=== PATIENT | male | born 1960 | race Caucasian/White ===

== ENCOUNTER → 2018-03-21 | Outpatient (CLI) | payer BC ==
--- NOTE | 2018-03-21 15:57 | PCVCIMAG ---
APPROVED REPORT Study performed: 03/21/2018 14:04:58 EXAM: Comprehensive 2D, Doppler, and color-flow Echocardiogram Patient Location: Echo lab Room #: 2Status: routine BSA: 2.16 HR: 72 bpmBP: 144/80 mmHg Rhythm: NSR Other Information Study Quality: Good Indications Aortic Valve Disease Mitral Valve Disease CAD HX: Rheumatic fever, Cor Ca+ score <100 2D Dimensions IVSd: 15.67 (7-11mm)LVOT Diam: 21.58 (18-24mm) LVDd: 39.30 mm PWd: 13.76 (7-11mm)Ascending Ao: 42.17 (22-36mm) LVDs: 27.14 (25-40mm) Left Atrium: 36.35 (27-40mm) Aortic Root: 28.46 mm LV Single Plane 4CH: 56.34 % LV Single Plane 2CH: 57.49 % Biplane EF: 58.2 % Volumes Left Atrial Volume (Systole) Single Plane 4CH: 36.84 mLSingle Plane 2CH: 46.17 mL Biplane LA Volume: 43.00 mLLA ESV Index: 20.00 mL/m2 Aortic Valve AoV Peak Jero.: 1.64 m/s AO Peak Gr.: 11.21 mmHgLVOT Max P.31 mmHg LVOT Mean P.45 mmHg LVOT Max V: 1.01 m/s LVOT Mean V: 0.75 m/s LVOT V1 VTI: 23.08 cm VLILA Vmax: 2.29 cm2 AI Vmax: 3.16 m/sSV (LVOT): 84.36 mL AI Garden: 1.53 m/s2 AI PHT: 621.92 ms Mitral Valve E/A Ratio: 1.0 MV Decel. Time: 265.79 ms MV E Max Jero.: 1.05 m/s MV A Jero.: 1.07 m/s IVRT: 121.11 ms TDI E/Lateral E': 15.00E/Medial E': 17.50 Medial E' Jero.: 0.06 m/s Lateral E' Jero.: 0.07 m/s Pulmonary Valve PV Peak Jero.: 0.86 m/sPV Peak Gr.: 2.93 mmHg Pulmonary Vein P Vein S: 0.62 m/sP Vein A: 0.35 m/s P Vein D: 0.37 m/sP Vein A Dur.: 96.9 msec P Vein S/D Ratio: 1.68 Tricuspid Valve TR Peak Jero.: 1.98 m/s TR Peak Gr.: 15.65 mmHg TV Vmax: 0.72 m/sPA Pressure: 23.00 mmHg Left Ventricle The left ventricle is normal size. There is normal LV segmental wall motion. There is normal left ventricular wall thickness. Left ventricular systolic function is normal. The left ventricular ejection fraction is within the normal range. LVEF is 55-60%. Left ventricular filling pattern is normal for age. Findings suggest the left atrial pressure is elevated. Right Ventricle The right ventricle is normal size. The right ventricular systolic function is normal. Atria The left atrium size is normal. The right atrium size is normal. Aortic Valve Aortic valve is trileaflet, mildly calcified Mild aortic regurgitation is present. There is no aortic valvular stenosis. Mitral Valve The mitral valve is normal in structure. There is mild mitral valve regurgitation noted. No evidence of mitral valve stenosis. Tricuspid Valve The tricuspid valve is normal in structure. There is no tricuspid valve regurgitation noted. Pulmonic Valve The pulmonary valve is normal in structure. There is no pulmonic valvular regurgitation. Great Vessels The aortic root is normal in size. The ascending aorta is mildly dilated. IVC is normal in size and collapses >50% with inspiration. Pericardium There is no pericardial effusion. There is no pleural effusion. <Conclusion> Left ventricular systolic function is normal. There is normal LV segmental wall motion. LVEF is 55-60%. Aortic valve is trileaflet, mildly calcified. Mild aortic regurgitation, no stenosis Mitral valve structurally normal. Mild mitral valve regurgitation The ascending aorta is dilated (4.3cm). There is no pericardial effusion.
== END | disposition home or self-care (01) ==
LOC: PCVCIMAG 13:48
PROVIDERS: ATTEND Internal Medicine
DX: I08.0 Rheumatic disorders of both mitral and aortic valves (principal); I25.10 Atherosclerotic heart disease of native coronary artery without angina pectoris; E78.5 Hyperlipidemia, unspecified; I71.2 Thoracic aortic aneurysm, without rupture; G47.33 Obstructive sleep apnea (adult) (pediatric); I09.9 Rheumatic heart disease, unspecified; M10.9 Gout, unspecified; Z79.82 Long term (current) use of aspirin; Z88.5 Allergy status to narcotic agent; Z72.89 Other problems related to lifestyle
CPT/HCPCS: 93306

== ENCOUNTER → 2019-03-06 | Outpatient (CLI) | payer BC ==
--- NOTE | 2019-03-06 16:46 | PCVCIMAG ---
APPROVED REPORT Study performed: 03/06/2019 15:06:53 EXAM: Comprehensive 2D, Doppler, and color-flow Echocardiogram Patient Location: Echo lab Room #: 2Status: routine BSA: 2.16 HR: 70 bpmBP: 150/84 mmHg Rhythm: NSR Other Information Study Quality: Adequate Indications Mitral Valve Disease HX: Rheumatic fever, Dilated ascending aorta 2D Dimensions IVSd: 14.66 (7-11mm)LVOT Diam: 20.69 (18-24mm) LVDd: 45.26 mm PWd: 9.90 (7-11mm)Ascending Ao: 43.65 (22-36mm) LVDs: 37.94 (25-40mm) Left Atrium: 37.21 (27-40mm) Aortic Root: 34.90 mm LV Single Plane 4CH: 59.53 % LV Single Plane 2CH: 61.72 % Biplane EF: 60.4 % Volumes Left Atrial Volume (Systole) Single Plane 4CH: 44.23 mLSingle Plane 2CH: 59.14 mL Biplane LA Volume: 54.00 mLLA ESV Index: 25.00 mL/m2 Aortic Valve AoV Peak Jero.: 1.50 m/s AO Peak Gr.: 9.31 mmHgLVOT Max P.56 mmHg LVOT Max V: 1.03 m/s VILLA Vmax: 2.32 cm2 Mitral Valve MV Peak Gr.: 7.08 mmHg MV Mean Gr.: 3.34 mmHgE/A Ratio: 0.9 MV Decel. Time: 266.62 ms MV E Max Jero.: 1.17 m/s MV A Jero.: 1.35 m/s MV Max Jero.: 1.33 m/s MV Mean Jero.: 0.87 m/s MV VTI: 455.31 mm IVRT: 86.51 ms TDI E/Lateral E': 14.63E/Medial E': 23.40 Medial E' Jero.: 0.05 m/s Lateral E' Jero.: 0.08 m/s Pulmonary Valve PV Peak Jero.: 0.85 m/sPV Peak Gr.: 2.91 mmHg Pulmonary Vein P Vein S: 0.62 m/sP Vein A: 0.32 m/s P Vein D: 0.39 m/sP Vein A Dur.: 100.3 msec P Vein S/D Ratio: 1.59 Tricuspid Valve TR Peak Jero.: 1.99 m/s TR Peak Gr.: 15.86 mmHg TV Vmax: 0.61 m/sPA Pressure: 23.00 mmHg Left Ventricle The left ventricle is normal size. There is normal LV segmental wall motion. Asymetric septal hypertrophy is seen. Left ventricular systolic function is normal. The left ventricular ejection fraction is within the normal range. LVEF is 60%. Mild diastolic dysfunction is present (impaired relaxation pattern). Right Ventricle The right ventricle is normal size. The right ventricular systolic function is normal. Atria The left atrium size is normal. The right atrium size is normal. Aortic Valve Aortic valve is trileaflet, mildly calcified. Mild aortic regurgitation. There is no aortic valvular stenosis. Mitral Valve The mitral valve is normal in structure. Trace to mild mitral regurgitation. No evidence of mitral valve stenosis. Tricuspid Valve The tricuspid valve is normal in structure. Mild tricuspid regurgitation with a PA pressure of 23 mmHg. No pulmonary hypertension. Pulmonic Valve The pulmonary valve is normal in structure. There is no pulmonic valvular regurgitation. Great Vessels The aortic root is normal in size. Ascending aorta is dilated (4.4cm). IVC is normal in size and collapses >50% with inspiration. Pericardium There is no pericardial effusion. There is no pleural effusion. <Conclusion> Left ventricular systolic function is normal. There is normal LV segmental wall motion. LVEF is 60%. Mild diastolic dysfunction Aortic valve is trileaflet, mildly calcified. Mild aortic regurgitation, no stenosis. The mitral valve is normal in structure. Trace to mild mitral regurgitation. Mild tricuspid regurgitation with a pulmonary artery pressure of 23 mmHg. Ascending aorta is dilated (4.4cm). There is no pericardial effusion.
== END | disposition home or self-care (01) ==
LOC: PCVCIMAG 15:06
PROVIDERS: ATTEND Internal Medicine
DX: I08.3 Combined rheumatic disorders of mitral, aortic and tricuspid valves (principal); E78.5 Hyperlipidemia, unspecified; I25.10 Atherosclerotic heart disease of native coronary artery without angina pectoris; I71.2 Thoracic aortic aneurysm, without rupture; M10.9 Gout, unspecified; G47.33 Obstructive sleep apnea (adult) (pediatric); Z98.52 Vasectomy status; Z72.89 Other problems related to lifestyle; Z85.46 Personal history of malignant neoplasm of prostate; Z82.49 Family history of ischemic heart disease and other diseases of the circulatory system; Z80.1 Family history of malignant neoplasm of trachea, bronchus and lung; Z80.42 Family history of malignant neoplasm of prostate; Z88.5 Allergy status to narcotic agent; Z79.82 Long term (current) use of aspirin; Z79.899 Other long term (current) drug therapy
CPT/HCPCS: 93306

== ENCOUNTER → 2019-04-06 | Outpatient (CLI) | payer BC ==
--- NOTE | 2019-04-06 16:59 | PCVCIMAG ---
APPROVED REPORT Study performed: 04/06/2019 15:50:29 Exam: Stress Echocardiogram Indication: Chest pain, dyspnea, calcium score- 42, hx rheumatic fever Patient Location: Echo lab Stress Nurse: Shahana Fisher RN Status: routine Ht: 5 ft 9 in HR: 75 bpm BP: 150/82 mmHg Rhythm: NSR Procedure The patient underwent an Exercise Stress Test using the Ray Protocol. Blood pressure, heart rate, and EKG were monitored. An Echocardiogram was performed by assistant technician in four stages in quad fashion. At peak stress, four selected images were obtained and placed side by side with resting images for comparison. Stress Test Details Stress Test: Exercise stress testing was performed using a Ray protocol. HR Resting HR: 75 bpmMax Heart Rate (APMHR): 162 bpm Max HR Achieved: 144 bpmTarget HR (85% APMHR): 137 bpm % of APMHR: 88 Recovery HR: 91 bpm HR response to stress: Normal HR response to stress BP Resting BP: 150/82 mmHg Max BP: 184/74 mmHg Recovery BP: 152/84 mmHg BP response to stress: Normal blood pressure response to stress. ECG Resting ECG: Sinus Rhythm Stress ECG: Sinus Rhythm ST Change: Normal Maximum ST Deviation: 0 mm Arrhythmia: rare PVCs Recovery ECG: Sinus Rhythm Recovery ST Change: Normal Recovery ST Deviation: 0 mm Recovery Arrhythmia: None Clinical Reason for Termination: Maximal effort, Dyspnea Stress Symptoms: Dyspnea Exercise duration: 9 min 33 sec Highest Stage Achieved: Stage 4: 4.2 mph at 16% grade. Exercise capacity: 12 METs Overall Exercise Capacity for Age: Normal Scale: Sedentary Angina Score: None Stress ECG Conclusion ECG: Non-ischemic Clinical: Non-ischemic Owen Treadmill Score is 9.0 which is Low risk. Pre-Stress Echo The resting Echocardiogram showed normal left ventricular contractility with an estimated Ejection Fraction of about >55%. The resting echocardiogram demonstrated normal wall motion in all wall segments. Post-Stress Echo The stress Echocardiogram showed normal left ventricular contractility with an estimated Ejection Fraction of about 65%. Compared to rest, there were no stress-induced wall motion abnormalities. Clinical No clinical or ECG evidence for ischemia. Conclusion Clinical Response: Non-ischemic Exercise Capacity: Average Stress ECG Response: Non-ischemic Stress Echo Images: Non-ischemic The left ventricle is normal in size and mild LVH in both the rest and stress images. Recent echo doppler. Normal stress echocardiogram with maximal exercise stress. Other Information Study Quality: Adequate <Conclusion> The left ventricle is normal in size and mild LVH in both the rest and stress images. Recent echo doppler. Normal stress echocardiogram with maximal exercise stress.
== END | disposition home or self-care (01) ==
LOC: PCVCIMAG 15:57
PROVIDERS: ATTEND Internal Medicine
DX: I25.10 Atherosclerotic heart disease of native coronary artery without angina pectoris (principal); I10 Essential (primary) hypertension; I08.0 Rheumatic disorders of both mitral and aortic valves; I71.2 Thoracic aortic aneurysm, without rupture; C44.311 Basal cell carcinoma of skin of nose; E78.00 Pure hypercholesterolemia, unspecified; E78.2 Mixed hyperlipidemia; M10.9 Gout, unspecified; G47.30 Sleep apnea, unspecified; Z86.79 Personal history of other diseases of the circulatory system; Z98.52 Vasectomy status; Z88.5 Allergy status to narcotic agent
CPT/HCPCS: 93351